=== PATIENT | female | born 1980 | race Two or more races ===

== ENCOUNTER 2024-03-20 16:44 | Inpatient (IN) | payer OTHER ==
[~2024-03-20] VITALS: Ht 170.2 cm; Wt 81.6 kg
[2024-03-20 17:00] VITALS: BP 108/73; PULSE 70; RESP 13; TEMP 98.2; O2SAT 96
[2024-03-20 17:19] LABS: BASOPHILS # (AUTO) 0.1 K/uL (0.00-0.22); BASOPHILS % (AUTO) 0.8 % (0.0-2.0); EOSINOPHILS % (AUTO) 0.3 % (0.0-4.0); HEMATOCRIT 36.6 % (36-48); HEMOGLOBIN 12.4 g/dL (12.0-16.0); LYMPHOCYTES # (AUTO) 1.2 K/uL (2.5-16.5); LYMPHOCYTES % (AUTO) 11.3 % (20.5-51.1); MEAN CORPUSCULAR HEMOGLOBIN 33 pg (27-31); MEAN CORPUSCULAR HGB CONC 34 g/dL (33-37); MEAN CORPUSCULAR VOLUME 96.5 fL (80-94); MONOCYTES # (AUTO) 0.9 K/uL (0.8-1.0); MONOCYTES % (AUTO) 7.9 % (1.7-9.3); NEUTROPHILS # (AUTO) 8.6 K/uL (1.8-7.7); NEUTROPHILS % (AUTO) 79.7 % (42.2-75.2); PLATELET COUNT (AUTO) 226 K/uL (140-450); RED CELL DISTRIBUTION WIDTH 13.6 % (11.6-13.7); WHITE BLOOD COUNT (AUTO) 10.8 K/uL (4.8-10.8)
[2024-03-20 17:31] LABS: ANION GAP 9.9 (8-16); CARBON DIOXIDE 25.9 mmol/L (21-32); CREATININE 0.8 mg/dL (0.6-1.3); POTASSIUM 3.8 mmol/L (3.5-5.1)
[2024-03-20] MEDS ORDERED: LORazepam 2 MG/ML VIAL ONE (18:24)
[2024-03-20] MEDS: LORazepam 2 MG/ML VIAL IVP ONE (18:32)
[2024-03-20 20:23] LABS: APPEARANCE,URINE CLEAR (CLEAR); BILIRUBIN,URINE NEGATIVE (NEGATIVE); BLOOD, URINE NEGATIVE (NEGATIVE); COLOR,URINE YELLOW (YELLOW); LEUKOCYTE ESTERASE ,URINE TRACE (NEGATIVE); NITRITE, URINE NEGATIVE (NEGATIVE); PH,URINE 7.5 (5.0-9.0); PROTEIN,URINE NEGATIVE (NEGATIVE); UGLUCOSE NEGATIVE (NEGATIVE); UROBILINOGEN,URINE 0.2 EU/dL (0.2 - 1)
[2024-03-20] MEDS ORDERED: MAG SULF 2000 MG/WATER PREMIX 50 ML IV PRN (21:30)
[2024-03-20] MEDS ORDERED: KCL 20 MEQ IN 100 mL PREMIX 200 ML IV PRN (21:30)
[2024-03-20] MEDS ORDERED: ONDANSETRON 4 MG/2 ML VIAL IVP PRN (21:30)
[2024-03-21] MEDS ORDERED: HYDROcodone/APAP 5/325 MG 1 TAB TAB ONE (02:36)
[2024-03-21] MEDS: LORazepam 2 MG/ML VIAL IVP SCH (05:29)
[2024-03-21] MEDS: HYDROcodone/APAP 5/325 MG 1 TAB TAB PO PRN (05:38)
[2024-03-21] MEDS ORDERED: GABA-636 PO (06:00)
[2024-03-21] MEDS ORDERED: LEVO0.124 PO (06:00)
[2024-03-21] MEDS ORDERED: BISA-279 RC (06:00)
[2024-03-21] MEDS ORDERED: HYDR-5458 PO (06:00)
[2024-03-21] MEDS ORDERED: ATOR10TA PO (06:00)
[2024-03-21] MEDS ORDERED: RIZA10TA88 PO (06:00)
[2024-03-21] MEDS ORDERED: LOV40I SUBQ (06:00)
[2024-03-21] MEDS ORDERED: METH-1681 PO (06:00)
[2024-03-21] MEDS ORDERED: MELA1TAB32 PO (06:00)
[2024-03-21] MEDS ORDERED: OXYC-304 PO (06:00)
[2024-03-21] MEDS ORDERED: ACET-2619 PO (06:00)
[2024-03-21] MEDS ORDERED: DOCU-299 PO (06:00)
[2024-03-21] MEDS ORDERED: LACT-191 PO (06:00)
[2024-03-21] MEDS ORDERED: TOP100 PO (06:00)
[2024-03-21] MEDS ORDERED: PANT40EC PO (06:00)
[2024-03-21] MEDS ORDERED: CLON-1201 PO (06:00)
[2024-03-21] MEDS ORDERED: FIO PO (06:00)
[2024-03-21] MEDS ORDERED: DEC1 PO (06:00)
[2024-03-21] MEDS ORDERED: DICL100G32 TP (06:00)
[2024-03-21] MEDS ORDERED: PAX20 PO (06:00)
[2024-03-21] MEDS ORDERED: ACET-512 PO (06:00)
[2024-03-21] MEDS ORDERED: TRAZ-471 PO (06:00)
[2024-03-21] MEDS ORDERED: ASPI-1856 PO (06:00)
[2024-03-21] MEDS ORDERED: PRAZ1CAP PO (06:00)
[2024-03-21 07:30] LABS: MAGNESIUM 1.8 mg/dL (1.8-2.4); PHOSPHORUS 3.2 mg/dL (2.5-4.9)
[2024-03-21 07:41] LABS: BASOPHILS # (AUTO) 0.1 K/uL (0.00-0.22); BASOPHILS % (AUTO) 0.8 % (0.0-2.0); EOSINOPHILS # (AUTO) 0.1 K/uL (0-0.4); EOSINOPHILS % (AUTO) 0.7 % (0.0-4.0); HEMATOCRIT 35.6 % (36-48); LYMPHOCYTES # (AUTO) 1.8 K/uL (2.5-16.5); LYMPHOCYTES % (AUTO) 22.4 % (20.5-51.1); MEAN CORPUSCULAR HEMOGLOBIN 33 pg (27-31); MEAN CORPUSCULAR HGB CONC 34 g/dL (33-37); MEAN CORPUSCULAR VOLUME 96.5 fL (80-94); MONOCYTES # (AUTO) 0.6 K/uL (0.8-1.0); MONOCYTES % (AUTO) 7.1 % (1.7-9.3); NEUTROPHILS # (AUTO) 5.6 K/uL (1.8-7.7); PLATELET COUNT (AUTO) 208 K/uL (140-450); RED BLOOD CELL COUNT(AUTO) 3.68 MIL/uL (4.20-5.40); RED CELL DISTRIBUTION WIDTH 13.5 % (11.6-13.7); WHITE BLOOD COUNT (AUTO) 8.2 K/uL (4.8-10.8)
[2024-03-21 09:09] LABS: ANION GAP 12.2 (8-16); CALCIUM 8.2 mg/dL (8.5-10.1); CARBON DIOXIDE 24.5 mmol/L (21-32); CREATININE 0.7 mg/dL (0.6-1.3); POTASSIUM 3.7 mmol/L (3.5-5.1)
[2024-03-21 10:19] VITALS: PULSE 69; RESP 20; O2SAT 100
[2024-03-21] MEDS: MORPHINE SULFATE 2 MG/ML SYR IVP PRN (11:15)
[2024-03-21 12:00] VITALS: BP 124/73; PULSE 73; PULSE 77; RESP 18; TEMP 98; O2SAT 100
[2024-03-21] MEDS ORDERED: bisacodyL 5 MG TABEC PO PRN (14:20)
[2024-03-21] MEDS ORDERED: FLUCONAZOLE 100 MG/NS PREMIX 50 ML IV SCH (14:20)
[2024-03-21 16:00] VITALS: BP 119/75; PULSE 68; PULSE 76; RESP 18; TEMP 98.2; O2SAT 100
[2024-03-21] MEDS: methocarbamoL 500 MG TAB PO SCH (17:46)
[2024-03-21] MEDS: TOPIRAMATE 100 MG TAB PO SCH (17:47)
[2024-03-21] MEDS: APAP/BUTAL/CAFF 325/50/40 MG 1 TAB PO PRN (18:24)
[2024-03-21 20:00] VITALS: BP 105/70; PULSE 71; PULSE 80; RESP 16; TEMP 98.1; O2SAT 98
[2024-03-21] MEDS: ATORVASTATIN 20 MG TAB PO SCH (21:04)
[2024-03-21] MEDS: PRAZOSIN 1 MG CAP PO SCH (21:04)
[2024-03-21] MEDS: MEDS-TO-BEDS MC SCH (21:06)
[2024-03-21] MEDS: clonazePAM 0.5 MG TAB PO PRN (22:44)
[2024-03-22] VITALS: BP 104/78; PULSE 60; PULSE 63; RESP 19; TEMP 97; O2SAT 97
[2024-03-22] MEDS: MELATONIN 3 MG TAB PO PRN (01:29)
[2024-03-22 04:00] VITALS: BP 108/71; PULSE 59; PULSE 61; RESP 19; TEMP 96.5; O2SAT 98
[2024-03-22 05:50] LABS: BASOPHILS # (AUTO) 0.1 K/uL (0.00-0.22); BASOPHILS % (AUTO) 0.8 % (0.0-2.0); EOSINOPHILS # (AUTO) 0.1 K/uL (0-0.4); EOSINOPHILS % (AUTO) 0.8 % (0.0-4.0); HEMATOCRIT 38.7 % (36-48); HEMOGLOBIN 12.9 g/dL (12.0-16.0); LYMPHOCYTES # (AUTO) 2.1 K/uL (2.5-16.5); LYMPHOCYTES % (AUTO) 26.3 % (20.5-51.1); MEAN CORPUSCULAR HEMOGLOBIN 32 pg (27-31); MEAN CORPUSCULAR HGB CONC 33 g/dL (33-37); MEAN CORPUSCULAR VOLUME 95.6 fL (80-94); MONOCYTES # (AUTO) 0.5 K/uL (0.8-1.0); MONOCYTES % (AUTO) 5.7 % (1.7-9.3); NEUTROPHILS # (AUTO) 5.3 K/uL (1.8-7.7); NEUTROPHILS % (AUTO) 66.4 % (42.2-75.2); PLATELET COUNT (AUTO) 238 K/uL (140-450); RED BLOOD CELL COUNT(AUTO) 4.05 MIL/uL (4.20-5.40); RED CELL DISTRIBUTION WIDTH 13.1 % (11.6-13.7)
[2024-03-22 06:08] LABS: ANION GAP 9.1 (8-16); CALCIUM 8.2 mg/dL (8.5-10.1); CARBON DIOXIDE 28.2 mmol/L (21-32); CREATININE 0.7 mg/dL (0.6-1.3); POTASSIUM 3.3 mmol/L (3.5-5.1)
[2024-03-22] MEDS: LEVOTHYROXINE 0.025 MG TAB ONE (06:46)
[2024-03-22] MEDS: LEVOTHYROXINE 0.025 MG, LEVOTHYROXINE 0.1 MG PO SCH (06:46)
[2024-03-22] MEDS: LEVOTHYROXINE 0.1 MG TAB ONE (06:47)
[2024-03-22 06:57] LABS: MAGNESIUM 1.8 mg/dL (1.8-2.4); PHOSPHORUS 4.1 mg/dL (2.5-4.9)
[2024-03-22 08:00] VITALS: BP 132/75; PULSE 66; PULSE 71; PULSE 80; RESP 16; TEMP 97.3; O2SAT 97; O2SAT 98
[2024-03-22] MEDS ORDERED: LEVOTHYROXINE SODIUM 100 MCG VIAL IV SCH (09:00)
[2024-03-22] MEDS: ECOTRIN 81 MG TABEC PO SCH (10:05)
[2024-03-22] MEDS: PARoxetine 20 MG TAB PO SCH (10:05)
[2024-03-22 12:00] VITALS: BP 115/68; PULSE 73; RESP 18; TEMP 97.6; O2SAT 100
[2024-03-22 16:00] VITALS: BP 115/68; PULSE 73; RESP 18; TEMP 97.6; O2SAT 100
[2024-03-22] MEDS: DOCUSATE 100 MG/10 ML UDC PO PRN (16:59)
[2024-03-22 20:00] VITALS: BP 139/95; PULSE 74; PULSE 75; RESP 19; TEMP 97.6; O2SAT 100; O2SAT 98
[2024-03-22] MEDS: POTASSIUM CHLORIDE 10 MEQ TABER PO PRN (21:38)
[2024-03-23] VITALS (8 sets, daily range): BP systolic 106–122; BP diastolic 61–78; PULSE 66–75; RESP 17–19; TEMP 97–97.8; O2SAT 98–99
[2024-03-23 06:04] LABS: MAGNESIUM 1.7 mg/dL (1.8-2.4); PHOSPHORUS 3.7 mg/dL (2.5-4.9)
[2024-03-23 06:07] LABS: BASOPHILS # (AUTO) 0.1 K/uL (0.00-0.22); EOSINOPHILS # (AUTO) 0.1 K/uL (0-0.4); HEMATOCRIT 37.7 % (36-48); HEMOGLOBIN 12.7 g/dL (12.0-16.0); LYMPHOCYTES # (AUTO) 1.7 K/uL (2.5-16.5); LYMPHOCYTES % (AUTO) 22.5 % (20.5-51.1); MEAN CORPUSCULAR HEMOGLOBIN 32 pg (27-31); MEAN CORPUSCULAR HGB CONC 34 g/dL (33-37); MEAN CORPUSCULAR VOLUME 94.6 fL (80-94); MONOCYTES # (AUTO) 0.5 K/uL (0.8-1.0); MONOCYTES % (AUTO) 6.6 % (1.7-9.3); NEUTROPHILS # (AUTO) 5.1 K/uL (1.8-7.7); NEUTROPHILS % (AUTO) 68.9 % (42.2-75.2); PLATELET COUNT (AUTO) 235 K/uL (140-450); RED BLOOD CELL COUNT(AUTO) 3.99 MIL/uL (4.20-5.40); RED CELL DISTRIBUTION WIDTH 13.1 % (11.6-13.7); WHITE BLOOD COUNT (AUTO) 7.4 K/uL (4.8-10.8)
[2024-03-23 06:15] LABS: CALCIUM 8.3 mg/dL (8.5-10.1); CREATININE 0.8 mg/dL (0.6-1.3)
[2024-03-23] MEDS: LEVOTHYROXINE 0.025 MG TAB ONE (08:42)
[2024-03-23] MEDS: LEVOTHYROXINE 0.1 MG TAB ONE (08:42)
[2024-03-23] MEDS: MAGNESIUM OXIDE 400 MG TAB PO PRN (15:24)
[2024-03-24] VITALS (10 sets, daily range): BP systolic 103–131; BP diastolic 60–79; PULSE 70–90; RESP 18; TEMP 96.9–98.2; O2SAT 96–100
[2024-03-24] MEDS: ACETAMINOPHEN 325 MG TAB PO PRN (03:58)
[2024-03-24 05:24] LABS: BASOPHILS # (AUTO) 0.1 K/uL (0.00-0.22); BASOPHILS % (AUTO) 0.9 % (0.0-2.0); EOSINOPHILS # (AUTO) 0.1 K/uL (0-0.4); HEMATOCRIT 37.4 % (36-48); HEMOGLOBIN 12.8 g/dL (12.0-16.0); LYMPHOCYTES # (AUTO) 1.7 K/uL (2.5-16.5); LYMPHOCYTES % (AUTO) 19.3 % (20.5-51.1); MEAN CORPUSCULAR HEMOGLOBIN 33 pg (27-31); MEAN CORPUSCULAR HGB CONC 34 g/dL (33-37); MEAN CORPUSCULAR VOLUME 94.9 fL (80-94); MONOCYTES # (AUTO) 0.5 K/uL (0.8-1.0); MONOCYTES % (AUTO) 6.1 % (1.7-9.3); NEUTROPHILS # (AUTO) 6.4 K/uL (1.8-7.7); NEUTROPHILS % (AUTO) 72.7 % (42.2-75.2); PLATELET COUNT (AUTO) 228 K/uL (140-450); RED BLOOD CELL COUNT(AUTO) 3.94 MIL/uL (4.20-5.40); RED CELL DISTRIBUTION WIDTH 13.6 % (11.6-13.7); WHITE BLOOD COUNT (AUTO) 8.8 K/uL (4.8-10.8)
[2024-03-24 05:53] LABS: ANION GAP 8.3 (8-16); CALCIUM 8.3 mg/dL (8.5-10.1); CARBON DIOXIDE 26.7 mmol/L (21-32); CREATININE 0.9 mg/dL (0.6-1.3)
[2024-03-24] MEDS: LEVOTHYROXINE 0.025 MG TAB ONE (06:17)
[2024-03-24] MEDS: LEVOTHYROXINE 0.1 MG TAB ONE (06:17)
[2024-03-24 06:28] LABS: MAGNESIUM 1.9 mg/dL (1.8-2.4); PHOSPHORUS 4.1 mg/dL (2.5-4.9)
[2024-03-24] MEDS: SUMAtriptan succinate 25 MG TAB PO SCH (17:45)
[2024-03-25 00:02] VITALS: PULSE 79
[2024-03-25 03:58] VITALS: BP 124/73; PULSE 70; RESP 18; TEMP 97.3; O2SAT 99
[2024-03-25 04:20] VITALS: PULSE 60
[2024-03-25 05:22] LABS: BASOPHILS # (AUTO) 0.1 K/uL (0.00-0.22); BASOPHILS % (AUTO) 0.7 % (0.0-2.0); EOSINOPHILS % (AUTO) 0.5 % (0.0-4.0); HEMATOCRIT 37.9 % (36-48); HEMOGLOBIN 12.8 g/dL (12.0-16.0); LYMPHOCYTES # (AUTO) 1.5 K/uL (2.5-16.5); LYMPHOCYTES % (AUTO) 14.1 % (20.5-51.1); MEAN CORPUSCULAR HEMOGLOBIN 32 pg (27-31); MEAN CORPUSCULAR HGB CONC 34 g/dL (33-37); MEAN CORPUSCULAR VOLUME 95.3 fL (80-94); MONOCYTES # (AUTO) 0.5 K/uL (0.8-1.0); MONOCYTES % (AUTO) 4.5 % (1.7-9.3); NEUTROPHILS # (AUTO) 8.3 K/uL (1.8-7.7); NEUTROPHILS % (AUTO) 80.2 % (42.2-75.2); PLATELET COUNT (AUTO) 233 K/uL (140-450); RED BLOOD CELL COUNT(AUTO) 3.97 MIL/uL (4.20-5.40); RED CELL DISTRIBUTION WIDTH 13.2 % (11.6-13.7); WHITE BLOOD COUNT (AUTO) 10.3 K/uL (4.8-10.8)
[2024-03-25 05:45] LABS: ANION GAP 7.1 (8-16); CALCIUM 8.4 mg/dL (8.5-10.1); CARBON DIOXIDE 27.8 mmol/L (21-32); CREATININE 0.8 mg/dL (0.6-1.3); POTASSIUM 3.9 mmol/L (3.5-5.1)
[2024-03-25] MEDS: LEVOTHYROXINE 0.1 MG TAB ONE (06:16)
[2024-03-25] MEDS: LEVOTHYROXINE 0.025 MG TAB ONE ×2 (06:16→06:17)
[2024-03-25 06:23] LABS: MAGNESIUM 1.8 mg/dL (1.8-2.4); PHOSPHORUS 4.4 mg/dL (2.5-4.9)
[2024-03-25 08:00] VITALS: BP 117/70; PULSE 67; PULSE 70; PULSE 74; RESP 18; TEMP 97.1; O2SAT 99
[2024-03-25 12:00] VITALS: BP 133/85; PULSE 82; PULSE 87; RESP 20; TEMP 97.5; O2SAT 95
[2024-03-25 16:00] VITALS: BP 132/81; PULSE 78; PULSE 82; RESP 18; TEMP 97.5; O2SAT 95
== END 2024-03-25 20:25 | disposition short-term general hospital (02) | DRG 48 ==
LOC: MED 16:44 → MTU 21:30
PROVIDERS: ADMIT Hospitalist; ATTEND Hospitalist
DX: M54.12 Radiculopathy, cervical region (principal); F23 Brief psychotic disorder; R41.0 Disorientation, unspecified; Z20.822 Contact with and (suspected) exposure to COVID-19; F43.10 Post-traumatic stress disorder, unspecified; Z79.899 Other long term (current) drug therapy; Z88.8 Allergy status to other drugs, medicaments and biological substances
CPT/HCPCS: 36415; 70450; 72125; 80048; 81003; 82948; 83735; 84100; 84484; 85025; 87081; 93005; 96374; 97110; 97116; 97163-GP; 97530; 99285; J1644; J2060; J2270